=== PATIENT | female | born 1970 ===

== ENCOUNTER 2016-08-31 13:34 | Emergency (ER) | payer OTHER ==
[2016-08-31 13:40] VITALS: BMI 27.8
[2016-08-31 13:42] VITALS: RESP 18
[2016-08-31] MEDS ORDERED: Oxycodone/Acetaminophen 5/325 mg Tab PO STA (14:32)
[2016-08-31] MEDS ORDERED: Oxycodone/Acetaminophen 5/325 mg Tab ONE (14:36)
--- NOTE | 2016-08-31 14:43 | C.PDOC ---
History Of Present Illness 45-year-old female, PMHx includes DVT (on Warfarin) and laproscopic knee surgery , presents to the emergency department with complaints of left knee pain that started yesterday at 7pm. Denies any trauma. Pain is worse with ambulation. Denies numbness/weakness, nausea/vomiting, fevers or chills. No other complaints at this time. Time Seen by Provider: 08/31/16 13:45 Chief Complaint (Nursing): Lower Extremity Problem/Injury History Per: Patient History/Exam Limitations: no limitations Onset/Duration Of Symptoms: Days Severity: Moderate Past Medical History Reviewed: Historical Data, Nursing Documentation, Vital Signs Vital Signs: Last Vital Signs Temp 98.0 F 08/31/16 16:45 Pulse 86 08/31/16 16:45 Resp 18 08/31/16 16:45 BP 125/88 08/31/16 16:45 Pulse Ox 99 08/31/16 16:45 - Medical History PMH: Deep Vein Thrombosis Surgical History: Appendectomy, Cholecystectomy Family History: States: No Known Family Hx - Social History Hx Alcohol Use: Yes Hx Substance Use: No - Immunization History Hx Tetanus Toxoid Vaccination: No Hx Influenza Vaccination: Yes (02/2016) Hx Pneumococcal Vaccination: No Review Of Systems Except As Marked, All Systems Reviewed And Found Negative. Constitutional: Negative for: Fever, Chills Cardiovascular: Negative for: Chest Pain Respiratory: Negative for: Shortness of Breath Gastrointestinal: Negative for: Nausea, Vomiting Musculoskeletal: Positive for: Leg Pain Skin: Negative for: Rash Neurological: Negative for: Weakness, Numbness, Headache, Dizziness Physical Exam - Physical Exam Appears: Non-toxic, No Acute Distress Skin: Warm, Dry, No Rash Head: Atraumatic, Normacephalic Eye(s): bilateral: Normal Inspection, EOMI Nose: Normal Oral Mucosa: Moist Lips: Normal Appearing Neck: Normal ROM Chest: Symmetrical Cardiovascular: Rhythm Regular, No Murmur Respiratory: Normal Breath Sounds, No Accessory Muscle Use Extremity: Normal ROM, Tenderness, Swelling, Other (tenderness to medial aspect of knee with swelling and mild calf tenderness ) Extremity: Bilateral: Atraumatic, Normal Color And Temperature Pulses: Left Dorsalis Pedis: Normal, Right Dorsalis Pedis: Normal Neurological/Psych: Oriented x3, Normal Speech, Normal Motor, Normal Sensation ED Course And Treatment O2 Sat by Pulse Oximetry: 96 Progress Note: XR Knee and Percocet ordered and reviewed. Venous scan ordered. Doppler evalauted by tech: Noted no DVT. Minor tear in gastrocnemius. Knee immobilizer applied by seed specialist. Crutches given. Case discussed with Dr nixon, agreed upon no labs and follow up with PMD/ortho in 1-2 days. Disposition - Disposition Referrals: Cristiana Vazquez MD [Staff Provider] - Disposition: HOME/ ROUTINE Disposition Time: 16:09 Condition: STABLE Additional Instructions: Rest, ice and elevate the area. Follow up with bone doctor in 1-2 days. Return to ER if symptoms persist or worsen. 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 - Scribe Statement The provider has reviewed the documentation as recorded by the Scribe (Merry Saab) All medical record entries made by the Scribe were at my direction and personally dictated by me. I have reviewed the chart and agree that the record accurately reflects my personal performance of the history, physical exam, medical decision making, and the department course for this patient. I have also personally directed, reviewed, and agree with the discharge instructions and disposition.
--- NOTE | 2016-08-31 14:49 | RAD ---
PROCEDURE: Left Knee Radiographs. HISTORY: Pain. COMPARISON: None. FINDINGS: BONES: Normal. No fracture. JOINTS: Mild osteoarthritis JOINT EFFUSION: None. OTHER FINDINGS: None. IMPRESSION: Mild osteoarthritis.
[2016-08-31 16:46] VITALS: BP 125/88; PULSE 86; TEMP 98
[2016-08-31 17:32] VITALS: O2SAT 96
--- NOTE | 2016-09-01 13:24 | VASCLAB ---
PROCEDURE: Left Lower Extremity Venous Duplex Exam. HISTORY: h/o dvt/PE, On Coumadin, Left calf pain, edema pain PRIORS: None. TECHNIQUE: Left common femoral, femoral, popliteal and posterior tibial, peroneal and great saphenous veins were evaluated. Flow was assessed with color Doppler, compressibility, assessment of phasic flow and augmentation response. Report prepared by Petr Claros, T FINDINGS: LEFT: 1. Common Femoral Vein: 1.1. Compressibility - Fully compressible: Thrombus - None : Flow - Phasic: Augmentation -Normal: Reflux - . 2. Femoral Vein: 2.1. Compressibility - Fully compressible: Thrombus - None: Flow - Phasic: Augmentation -Normal: Reflux - . 3. Popliteal Vein: 3.1. Compressibility - Fully compressible: Thrombus - None: Flow - Phasic: Augmentation -Normal: Reflux - . 4. Posterior Tibial Vein: 4.1. Compressibility - Fully compressible: Thrombus - None: Flow - : Augmentation -: Reflux - . 5. Peroneal Vein: 5.1. Compressibility - Fully compressible: Thrombus - None: Flow - : Augmentation -l: Reflux - . 6. Great Saphenous Vein: 6.1. Compressibility - Fully compressible: Thrombus - None: Flow - : Augmentation - : Reflux - . OTHER FINDINGS: There was an hyperechoic structure noted from popliteal fossa extending into proximal calf, which is suggestive of hematoma from possible muscle tear and measured 4.5x0.5 cm. IMPRESSION: No evidence of deep or superficial vein thrombosis of the left lower extremity with excellent venous flow. Normal venous flow noted in the right common femoral vein.
== END 2016-08-31 16:48 | disposition home or self-care (01) ==
LOC: C.ER 13:34
DX: M25.562 Pain in left knee (principal)